=== PATIENT | male | born 1970 | race Caucasian/White ===

== ENCOUNTER 2017-04-12 04:31 | Emergency (ER) | payer MEDICAID ==
[~2017-04-12] VITALS: Ht 177.8 cm; Wt 74.8 kg
--- NOTE | 2017-04-12 04:45 | NUR ---
Dr. Donahue at bedside for MSE
--- NOTE | 2017-04-12 05:23 | NUR ---
Pt stable for discharge per MD. Pt given ACI. Pt verbalized understanding of dc instructions. Pt ambulated out of er with steady gait and ride home.
[2017-04-12 05:24] VITALS: BP 158/105
== END 2017-04-12 05:24 | disposition home or self-care (01) ==
LOC: ER 04:38
DX: S05.02XA Injury of conjunctiva and corneal abrasion without foreign body, left eye, initial encounter (principal); F17.200 Nicotine dependence, unspecified, uncomplicated; X58.XXXA Exposure to other specified factors, initial encounter; Y93.89 Activity, other specified; Y92.9 Unspecified place or not applicable; Y99.9 Unspecified external cause status
CPT/HCPCS: 70200; 99284; A4663; 70030-TC; 90715

== ENCOUNTER 2018-06-14 15:58 | Emergency (ER) | payer MEDICAID, OTHER ==
[~2018-06-14] VITALS: Ht 177.8 cm; Wt 74.8 kg
--- NOTE | 2018-06-14 16:11 | NUR ---
is at bedside doing the MSE.
[2018-06-14] MEDS ORDERED: TDAP DIPH,PERTUSS,TET VAC/PF 0.5 ML DISP.SYRIN IM ONE ×2 (16:25→16:30)
[2018-06-14] MEDS ORDERED: LIDOCAINE HCL 1% 20 ML VIAL IJ ONE (16:30)
[2018-06-14 16:40] LABS: BASOPHILS % (AUTO) 0.3 % (0.0-2.0); EOSINOPHILS % (AUTO) 0.3 % (0.0-7.0); HEMATOCRIT 48.9 % (36.7-47.1); HEMOGLOBIN 16.5 g/dL (12.5-16.3); LYMPHOCYTES # (AUTO) 1.7 K/uL (20.0-40.0); MEAN CORPUSCULAR HEMOGLOBIN 30.8 uug (23.8-33.4); MEAN CORPUSCULAR HGB CONC 34 g/dL (32.5-36.3); MEAN CORPUSCULAR VOLUME 91.1 fL (73.0-96.2); MONOCYTES # (AUTO) 0.2 K/uL (2.0-10.0); MONOCYTES % (AUTO) 1.6 % (0.0-11.0); NEUTROPHILS # (AUTO) 7.9 K/uL (1.8-8.9); NEUTROPHILS % (AUTO) 80.8 % (38.5-71.5); PLATELET COUNT (AUTO) 257 K/uL (152-348); RED BLOOD CELL COUNT(AUTO) 5.36 MIL/uL (4.06-5.63); WHITE BLOOD COUNT (AUTO) 9.8 K/uL (3.6-10.2)
--- NOTE | 2018-06-14 17:00 | NUR ---
Patient is resting comfortably on gurney while intermittently using his personal electronic device. NAD.
[2018-06-14] MEDS ORDERED: SULFAMETH/TRIMETH 800/160 MG TABLET PO ONE (17:15)
[2018-06-14] MEDS ORDERED: SULFAMETH/TRIMETH 800/160 MG TABLET ONE (17:25)
--- NOTE | 2018-06-14 17:29 | NUR ---
Patient discharged to home in stable conditon & brisk steady gait. Written and verbal after care instructions given to patient. Patient verbalizes understanding of instructions.
[2018-06-14 17:30] LABS: CREATININE 1.1 mg/dL (0.6-1.3); POTASSIUM 3.7 mmol/L (3.5-5.1)
[2018-06-14 17:36] LABS: BILIRUBIN,DIRECT 0.2 mg/dL (0.0-0.2); BILIRUBIN,TOTAL 0.7 mg/dL (0.2-1.0); TOTAL PROTEIN, SERUM 7.2 g/dL (6.4-8.2)
== END 2018-06-14 17:31 | disposition home or self-care (01) ==
LOC: ER 16:05
DX: L02.414 Cutaneous abscess of left upper limb (principal); F17.200 Nicotine dependence, unspecified, uncomplicated
CPT/HCPCS: 10060; 36415; 80048; 80076; 83605; 84484; 85025; 87040 ×2; 90471; 90715; 99284; J3490; 70030-TC; A4663

== ENCOUNTER 2021-07-09 14:32 | Emergency (ER) | payer OTHER ==
[~2021-07-09] VITALS: Ht 172.7 cm; Wt 74.8 kg
[2021-07-09] MEDS: KETOROLAC TROMETHAMINE 15 MG INJ IVP ONE (15:02)
[2021-07-09] MEDS ORDERED: KETOROLAC TROMETHAMINE 15 MG INJ ONE (15:06)
[2021-07-09 15:08] LABS: CREATININE 1.2 mg/dL (0.6-1.3); HEMATOCRIT 40.7 % (36.7-47.1); MEAN CORPUSCULAR HEMOGLOBIN 30.7 uug (23.8-33.4); MEAN CORPUSCULAR VOLUME 89.5 fL (73.0-96.2); PLATELET COUNT (AUTO) 146 K/uL (152-348); POTASSIUM 3.6 mmol/L (3.5-5.1)
[2021-07-09 15:19] LABS: BILIRUBIN,TOTAL 0.3 mg/dL (0.2-1.0); TOTAL PROTEIN, SERUM 7.2 g/dL (6.4-8.2)
--- NOTE | 2021-07-09 16:07 | NUR ---
Saline lock removed, clear and intact. Patient discharged to home in stable condition. Written and verbal after care instructions given. Patient verbalizes understanding of instructions. Stressed follow up or return to ER for worsening s/s.
[2021-07-09 16:16] VITALS: BP 134/87
== END 2021-07-09 16:15 | disposition home or self-care (01) ==
LOC: ER 14:32
DX: U07.1 COVID-19 (principal); Z87.442 Personal history of urinary calculi
CPT/HCPCS: 36415; 71045; 76700; 80053; 83690; 85025; 87426; 96374; 99284; J1885; A4663